=== PATIENT | male | born 1995 | race African-American/Black ===

== ENCOUNTER 2022-05-16 15:29 | Emergency (ER) | payer OTHER, SELFPAY ==
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
[2022-05-16 15:50] VITALS: BP 148/66; PULSE 92; RESP 18; TEMP 36.6; O2SAT 100
--- NOTE | 2022-05-16 17:12 | ED.URI ---
HPI - URI/Sore Throat General Chief Complaint: Upper Respiratory Infection Stated Complaint: cough Time Seen by Provider: 05/16/22 16:30 History of Present Illness HPI Narrative: Patient is a 26-year-old male here for evaluation of cough and congestion over the past 2 days. Patient notes that he has had a productive cough of clear sputum with frequent coughing fits. He is attempted benzonatate and [id number] cough syrup without relief of his symptoms. He took a home COVID test that was negative. Has mild sore throat, resolved without intervention. Denies shortness of breath, chest pain, syncope, weakness, fevers, chills. Related Data Allergies Allergy/AdvReac Type Severity Reaction Status Date / Time No Known Allergies Allergy Verified 05/16/22 16:25 Review of Systems Review of Systems: Gen: Denies fevers or chills Eyes: Denies eye pain or visual change ENT: Reports congestion Respiratory: Reports cough CV: Denies chest pain or palpitations GI: Denies abdominal pain nausea, emesis or diarrhea denies burning, urgency, frequency or hematuria Musculoskeletal: Denies back pain or muscle pain Neuro: Denies numbness, tingling, weakness or focal weakness Skin: Denies rash Except as documented, all other systems reviewed and negative Exam Narrative: APPEARANCE: No acute distress, nontoxic, resting in bed EYES: EOMI HEENT: Normocephalic, atraumatic, OMM. Posterior oropharynx is clear. RESPIRATORY: Coughing throughout exam. No respiratory distress Clear to auscultation bilaterally with no rhonchi wheezing or rales. CARDIOVASCULAR: Regular rate and rhythm without murmurs rubs or gallops. ABDOMINAL: Soft, nontender, nondistended, no rebound or guarding MUSCULOSKELETAL: Moves all extremities. No clubbing, cyanosis or edema. NEURO: Awake and alert. Following commands, speech normal, no focal deficits SKIN:: Warm, dry. No rashes lesions or abrasions PSYCHIATRIC: Normal affect/mood, Course Vital Signs Vital signs: Vital Signs Temperature 97.9 F 05/16/22 15:50 Pulse Rate 92 05/16/22 15:50 Respiratory Rate 18 05/16/22 15:50 Blood Pressure 148/66 H 05/16/22 15:50 Pulse Oximetry 100 05/16/22 15:50 Oxygen Delivery Room Air 05/16/22 15:50 Temperature 97.9 F 05/16/22 15:50 Pulse Rate 92 05/16/22 15:50 Respiratory Rate 18 05/16/22 15:50 Blood Pressure 148/66 H 05/16/22 15:50 Pulse Oximetry 100 05/16/22 15:50 Oxygen Delivery Room Air 05/16/22 15:50 MDM - URI/Sore Throat MDM Narrative Medical decision making narrative: 26-year-old male here for evaluation of upper respiratory type infection symptoms for the past 2 days. Here, his vital signs are normal, he is nontoxic-appearing, heart and lungs clear to auscultation. Home COVID test was negative. Chest x-ray here is clear. Will discharge with cough syrup and discussed return precautions with patient. Discharge Plan Discharge Clinical Impression: Upper respiratory infection Patient Disposition: Home, Self-Care Condition: Stable Instructions: Antibiotic Form, Upper Respiratory Infection (ED) Additional Instructions: Your chest x-ray was clear today. You likely have a viral infection that is causing her symptoms that was tested for. Please return to the emergency department if you feel short of breath, you develop chest pain, if you pass out or feel weak. Follow-up with your primary care provider next week. You may use the dextromethorphan syrup as needed for cough. Prescriptions: New dextromethorphan HBr 15 mg/5 mL liquid 15 mg PO ONCE PRN (Reason: cough) Qty: 118 0RF Follow-up/Referrals: PHYSICIAN NOT ON STAFF,NONSTAFF [Primary Care Provider] -
--- NOTE | 2022-05-16 17:20 | PC.NURSE ---
pt. requesting to talk w/ PA prior to discharge. SERAFIN Geronimo notified
[2022-05-16 17:30] VITALS: O2SAT 97
== END 2022-05-16 17:55 | disposition home or self-care (01) ==
LOC: ANHED 17:43
PROVIDERS: Emergency Provider Emergency Medicine; PCP Internal Medicine
DX: J06.9 Acute upper respiratory infection, unspecified (principal)
CPT/HCPCS: 71046; 99283